=== PATIENT | male | born 1970 | race Caucasian/White ===

== ENCOUNTER 2016-11-25 04:20 | Emergency (ER) | payer OTHER ==
[2016-11-25 04:33] LABS: Hematocrit 41 % (42-52); Mean Corpuscular HGB Conc 32 g/dl (31-36); Mean Corpuscular Hemoglobin 32 pg (27-31); Mean Corpuscular Volume 101 fL (80-94); Mean Platelet Volume 13 um3 (7.4-10.4); Red Blood Count 4.07 10^6/ul (4.0-5.4); Red Cell Distribution Width 14 % (10.5-15); White Blood Count 23.9 10^3/ul (3.5-10.8)
[2016-11-25 04:35] LABS: Add Diff/Slide Review? Slide Review Added; Comments Flag Yes
[2016-11-25] MEDS ORDERED: LORazepam INJ* 2 MG/ML 1 ML VIAL ONE (04:43)
[2016-11-25 04:46] LABS: ALT 29 U/L (7-52); AST 32 U/L (13-39); Albumin 4.7 g/dL (3.2-5.2); Alkaline Phosphatase 59 U/L (34-104); Blood Urea Nitrogen 11 mg/dL (6-24); Calcium 8.9 mg/dL (8.6-10.3); Chloride 111 mmol/L (101-111); EGFR Non-African American 64.5 (>60); Globulin 2.4 g/dL (2-4); Glucose 103 mg/dL (70-100); Potassium 4.3 mmol/L (3.5-5.0); Sodium 142 mmol/L (133-145); Total Protein 7.1 g/dL (6.4-8.9)
[2016-11-25 04:48] LABS: Anion Gap 18 mmol/L (2-11); CO2 Carbon Dioxide 13 mmol/L (22-32)
[2016-11-25 05:14] LABS: Valproic Acid < 13.0 mcg/mL (50-100)
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
[2016-11-25 06:26] VITALS: BP 118/81
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
== END 2016-11-25 06:36 | disposition home or self-care (01) ==
LOC: ED 04:20
DX: R56.9 Unspecified convulsions (principal); S01.91XA Laceration without foreign body of unspecified part of head, initial encounter; X58.XXXA Exposure to other specified factors, initial encounter; Y93.9 Activity, unspecified; Y92.9 Unspecified place or not applicable
CPT/HCPCS: 12001; 36415; 70450; 72125; 80053; 80164; 80177; 80184; 85025; 99283; J2060

== ENCOUNTER 2017-01-03 23:29 | Emergency (ER) | payer OTHER ==
[2017-01-04] MEDS ORDERED: HYDROcodone/ACETAMIN 5-325 MG* 1 TAB PO ONE (03:20)
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
[2017-01-04 04:37] VITALS: BP 107/66
[2017-01-04] MEDS ORDERED: Nicotine Inhaler* 10 MG AMP INH PRN (05:15)
[2017-01-04] MEDS ORDERED: Mouth Piece, Nicotine* 1 EACH CARTRIDGE INH PRN (05:15)
[2017-01-04] MEDS ORDERED: Mouth Piece, Nicotine* 1 EACH CARTRIDGE ONE (05:22)
[2017-01-04] MEDS ORDERED: Nicotine Inhaler* 10 MG AMP ONE (05:22)
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
== END 2017-01-04 05:25 | disposition short-term general hospital (02) ==
LOC: ED 23:29
DX: S01.01XA Laceration without foreign body of scalp, initial encounter (principal); R55 Syncope and collapse; R60.9 Edema, unspecified; R51 Headache; W50.0XXA Accidental hit or strike by another person, initial encounter; Y93.89 Activity, other specified; Y92.89 Other specified places as the place of occurrence of the external cause
CPT/HCPCS: 12013; 70450; 70486; 72125; 99283; A9270-GY